=== PATIENT | male | born 1980 | race Caucasian/White ===

== ENCOUNTER 2024-10-26 18:17 | Outpatient (REF) | payer BC, SELFPAY | END 2024-10-26 18:18 | disposition home or self-care (01) | LOC: HO.XRAY 18:17 | PROVIDERS: Visit Provider Physician Assistant | DX: M79.601 Pain in right arm (principal) | CPT/HCPCS: 73110; 73130 ==

== ENCOUNTER → 2024-10-26 18:24 | Outpatient (BNV) | payer BC, SELFPAY | PROVIDERS: Visit Provider Radiology Diagnostic Radiology | DX: S52.354A Nondisplaced comminuted fracture of shaft of radius, right arm, initial encounter for closed fracture (principal) | CPT/HCPCS: 73110; 73130 ==